=== PATIENT | female | born 1945 | race Caucasian/White ===

== ENCOUNTER 2017-05-12 09:40 | Day surgery (SDC) | payer MEDICARE, OTHER ==
[2017-05-08 15:18] VITALS: BMI 18.3
[2017-05-12] MEDS ORDERED: CEFAZOLIN/Water 2 GM/20 ML SYRINGE ONE (09:57)
[2017-05-12] MEDS ORDERED: Bupivacaine 0.25% HCL 30 ML VIAL ONE (11:23)
[2017-05-12] MEDS ORDERED: Lidocaine 1% w/Epinephrine 1:200K 30 ML VIAL ONE (11:23)
[2017-05-12] MEDS ORDERED: Heparin 5,000 UNITS/ML VIAL ONE (11:23)
[2017-05-12] MEDS ORDERED: Fentanyl 100 MCG/2 ML VIAL ONE (11:24)
[2017-05-12] MEDS ORDERED: Propofol 500 MG/50 ML VIAL ONE (11:24)
[2017-05-12] MEDS ORDERED: Midazolam HCl 2 mg/2 ml Vial ONE (11:24)
--- NOTE | 2017-05-12 14:41 | RAD ---
PORTABLE CHEST: History: Assess Mediport placement. FINDINGS: Mediport catheter is in place within the subclavian vein. The tip overlies the SVC and appears in dary quate position. The lungs are clear. No infiltrate or pneumothorax seen. Heart size is normal. IMPRESSION: Mediport catheter appears in adequate position. POS: [facility]
[2017-05-12] MEDS ORDERED: CEFAZOLIN 1 GM VIAL ONE (15:00)
[2017-05-12] MEDS ORDERED: Lidocaine 1% PF 5 ML VIAL ONE (15:00)
[2017-05-12] MEDS ORDERED: PROPOFOL 200 MG/20 ML VIAL ONE (15:00)
[2017-05-12] MEDS ORDERED: PHENYLEPHRINE-NS 100 MCG/ML 10 ML SYRINGE ONE (15:00)
[2017-05-12] MEDS ORDERED: Sterile Water 10 ML VIAL ONE (15:00)
--- NOTE | 2017-05-16 17:35 | PDOC.OP ---
Operative Note - Operative Note Operative Note: PROCEDURE: Left subclavian MediPort placement with fluoroscopic guidance SURGEON: Geovanni Torres M.D. DATE OF PROCEDURE: 05/12/2017 PREOPERATIVE DIAGNOSIS: Colon cancer POSTOPERATIVE DIAGNOSIS: Colon cancer HISTORY: Patient is diagnosed with colon cancer. Chemotherapy has been recommended and the oncologist has requested MediPort placement for this. OPERATIVE PROCEDURE IN DETAIL: After informed consent was obtained and appropriate preoperative antibiotics were administered, the patient was taken to the operating room and placed in supine position and monitored anesthesia care was administered. The patient was then placed in Trendelenburg position and the subclavian vein accessed easily on the first attempt with excellent flow of dark venous non-pulsatile blood. A wire threaded easily and was confirmed to be in the superior vena cava by fluoroscopy. Additional local anesthesia was infused to the skin and subcutaneous tissues lateral and inferior to the access site. The skin incision was extended from the wire laterally and a subcutaneous pocket developed inferiorly. A Mediport was obtained and confirmed to fit in the subcutaneous pocket. This was secured inferiorly to the pectoralis fascia with a Prolene suture, which was clamped, but not tied. The dilator and sheath were then placed over the wire and the dilator and wire removed leaving the sheath in place. The clamped MediPort tubing was tunneled through the sheath, which was then split and removed leaving the MediPort tubing in place. The tubing was adjusted until the tip was confirmed by fluoroscopy to be in the superior vena cava just above the atrium. The tubing was clamped at the skin level and cut and the tubing secured to the port, which was then placed in the subcutaneous pocket. The previously placed suture was secured and two additional sutures were placed to fix the port in place within the pocket. The port was aspirated with the Marino needle and had excellent flow of dark venous non-pulsatile blood and easily flushed without resistance. The subcutaneous tissues were closed with a running Monocryl suture, following which the skin was closed with a running subcuticular Monocryl suture. Dermabond dressings were placed and the hub was again accessed through the skin and confirmed to easily aspirate and easily flush. The course of the catheter was confirmed by fluoroscopy to be smooth with the tip appropriately located in the superior vena cava. The patient was taken her back to the day stay unit in good condition. Estimated blood loss was minimal. There were no complications. There were no specimens.
== END 2017-05-12 13:25 | disposition home or self-care (01) ==
LOC: SDC 09:40
PROVIDERS: ATTEND Surgery
PROC: 05H633Z Insertion of Infusion Device into Left Subclavian Vein, Percutaneous Approach (ICD-10-PCS; principal; 2017-05-12)
DX: C18.9 Malignant neoplasm of colon, unspecified (principal); C77.2 Secondary and unspecified malignant neoplasm of intra-abdominal lymph nodes; Z88.5 Allergy status to narcotic agent; Z90.710 Acquired absence of both cervix and uterus; Z90.13 Acquired absence of bilateral breasts and nipples; Z90.49 Acquired absence of other specified parts of digestive tract; Z85.3 Personal history of malignant neoplasm of breast; Z80.41 Family history of malignant neoplasm of ovary
CPT/HCPCS: 36561; 71045; C1788; 76001; A4216; J0690; J1642; J1644; J2001; J2250; J2704; J3010; S0020

== ENCOUNTER 2017-10-31 09:29 | Outpatient (CLI) | payer MEDICARE, OTHER ==
[2017-10-31] MEDS ORDERED: ISOVUE-370 76%-LOCM 1 ML ONE (12:14)
== END 2017-10-31 09:30 | disposition home or self-care (01) ==
LOC: BICCT 09:29
PROVIDERS: ATTEND Internal Medicine Medical Oncology
DX: C18.2 Malignant neoplasm of ascending colon (principal); R91.8 Other nonspecific abnormal finding of lung field; J84.10 Pulmonary fibrosis, unspecified
CPT/HCPCS: 71260; 74177